=== PATIENT | male | born 1955 | race Caucasian/White ===

== ENCOUNTER → 2024-08-16 | Outpatient (BNVA) | payer BC, SELFPAY | END | disposition home or self-care (01) | PROVIDERS: PCP Nurse Practitioner Family; Referring Provider Nurse Practitioner Family; Visit Provider Nurse Practitioner Family | DX: S50.812A Abrasion of left forearm, initial encounter (principal); Z23 Encounter for immunization | CPT/HCPCS: 90471; 90714; 99212 ==